=== PATIENT | male | born 1970 | race Caucasian/White ===

== ENCOUNTER 2018-06-30 09:26 | Emergency (ER) | payer MEDICAID ==
[~2018-06-30] VITALS: Ht 175.3 cm; Wt 110.2 kg
[2018-06-30 09:26] VITALS: BP_SYST 112
--- NOTE | 2018-06-30 11:21 | NUR ---
Patient is awake, alert, and oriented x4. Patient is complaining of aching right sided abdominal pain 9/10 for 1 day. Patient denies previous medical history.
--- NOTE | 2018-06-30 11:58 | NUR ---
PT TAKEN TO RADIOLOGY VIA WHEELCHAIR IN STABLE CONDITION
--- NOTE | 2018-06-30 12:04 | NUR ---
PT RETURNED FROM RADIOLOGY VIA WHEELCHAR IN STABLE CONDITION
--- NOTE | 2018-06-30 12:15 | NUR ---
ER Dr. Hinkle at bedside examining patient.
[2018-06-30 12:16] LABS: CREATININE 0.87 mg/dL (0.55-1.30); POTASSIUM 4.2 mmol/L (3.5-5.1)
[2018-06-30 12:17] LABS: HEMATOCRIT 49.4 % (36-54); HEMOGLOBIN 16.4 g/dL (14.0-18.0); PROTHROMBIN TIME 9.9 SECS (9.5-12.5); RED BLOOD CELL COUNT(AUTO) 5.39 MIL/uL (4.2-6.2); WHITE BLOOD COUNT (AUTO) 12.3 K/uL (4.8-10.8)
[2018-06-30 12:18] LABS: BASOPHILS # (AUTO) 0.1 K/uL (0.0-0.2); BASOPHILS % (AUTO) 0.7 % (0.0-2.0); EOSINOPHILS # (AUTO) 0.1 K/uL (0.0-0.4); EOSINOPHILS % (AUTO) 1.2 % (0.0-4.0); LYMPHOCYTES # (AUTO) 1.7 K/uL (1.0-5.5); LYMPHOCYTES % (AUTO) 13.7 % (20.5-51.5); MEAN CORPUSCULAR HEMOGLOBIN 30 pg (27-31); MEAN CORPUSCULAR HGB CONC 33 % (32-36); MEAN CORPUSCULAR VOLUME 92 fL (79.0-98.0); MONOCYTES % (AUTO) 8.1 % (1.7-9.3); NEUTROPHILS # (AUTO) 9.4 K/uL (1.8-7.7); NEUTROPHILS % (AUTO) 76.3 % (40.0-70.0); PLATELET COUNT (AUTO) 299 K/uL (130-430)
[2018-06-30 12:20] LABS: ALBUMIN 3.5 g/dL (3.4-4.8); TOTAL BILIRUBIN 1.1 mg/dL (0.0-1.0)
[2018-06-30 12:55] LABS: BILIRUBIN,URINE NEGATIVE (NEGATIVE); BLOOD, URINE NEGATIVE (NEGATIVE); CLARITY/URINE CLEAR (CLEAR); COLOR,URINE YELLOW (YELLOW); GLUCOSE,URINE NEGATIVE (NEGATIVE); KETONES,URINE NEGATIVE (NEGATIVE); LEUKOCYTE ESTERASE ,URINE NEGATIVE (NEGATIVE); NITRITE, URINE NEGATIVE (NEGATIVE); PROTEIN URINE TRACE (NEGATIVE)
[2018-06-30] MEDS ORDERED: VITD400 PO (13:08)
--- NOTE | 2018-06-30 13:58 | NUR ---
Report given to Robbie for continuation of care.
[2018-06-30] MEDS ORDERED: PIPERACILLIN/TAZO 3.375 GM in NS 50 ML IV ONE (14:30)
[2018-06-30] MEDS ORDERED: NACL 0.9% 1,000 ML IV ONE (14:30)
--- NOTE | 2018-06-30 14:30 | NUR ---
Pt signed consent to transfer
[2018-06-30] MEDS ORDERED: PIPERACILLIN/TAZOBACTAM 3.375 GM/VIAL (ZOSYN) IV ONE (14:57)
--- NOTE | 2018-06-30 15:26 | NUR ---
TRANSFER INFO SPOKE TO [facility] RM: [id number] BED 2 REPORT #: [phone]
--- NOTE | 2018-06-30 16:03 | NUR ---
Note undone in EDM - 06/30/18 at 1604 by [email or web address] Patient to be transferred to [facility]. Is being transferred due to higher level of care. Receiving facility has accepting physician and available space. ER physician Dr. Hinkle has signed transfer form. Patient or responsible constitution party has agreed to transfer and signed form. Patient belongings inventoried and will be sent with patient. Copy of nursing notes, lab reports, EKG, Physicians Orders and X-rays to be sent with patient. Report called to at receiving facility. Receiving physician is Dr. Parra. Ambulance service has been called for transfer. ETA is now.
--- NOTE | 2018-06-30 16:05 | NUR ---
Patient to be transferred to [facility]. Is being transferred due to higher level of care. Receiving facility has accepting physician and available space. ER physician Dr. Hinkle has signed transfer form. Patient or responsible republican has agreed to transfer and signed form. Patient belongings inventoried and will be sent with patient. Copy of nursing notes, lab reports, EKG, Physicians Orders and X-rays to be sent with patient. Report called to Kim FERNANDEZ at receiving facility. Receiving physician is Dr. Parra. Ambulance service has been called for transfer. ETA is now.
[2018-06-30 16:07] VITALS: BP_SYST 119
== END 2018-06-30 16:05 | disposition short-term general hospital (02) ==
LOC: SED 09:26
DX: K57.92 Diverticulitis of intestine, part unspecified, without perforation or abscess without bleeding (principal); Z79.899 Other long term (current) drug therapy
CPT/HCPCS: 36415; 71045; 74176; 80053; 81003; 83605; 83690; 85025; 85610; 87040; 93005; 96365; 99285; J2543; J7030

== ENCOUNTER 2018-09-21 18:04 | Emergency (ER) | payer MEDICAID ==
[~2018-09-21] VITALS: Ht 177.8 cm; Wt 109.8 kg
[~2018-09-21 18:04] MED LIST: VITD400 PO
[2018-09-21 18:13] VITALS: BP_SYST 119
--- NOTE | 2018-09-21 18:22 | NUR ---
Patient to ER bed 1 to gown for evaluation. Side rails up. Report given to Abhishek FERANNDEZ.
--- NOTE | 2018-09-21 18:27 | NUR ---
Patient is awake, alert, and oriented x4. Patient is complaining of fever, lethargy, throbbing right sided flank 4/10. Patient reports last bowel movement was yesterday and was soft. He has a history of diverticulitis.
--- NOTE | 2018-09-21 18:28 | NUR ---
JAMES Salmon at bedside examining patient.
[2018-09-21] MEDS ORDERED: NACL 0.9% 1,000 ML IV ONE ×2 (18:45→19:30)
[2018-09-21 18:59] LABS: BASOPHILS # (AUTO) 0.1 K/uL (0.0-0.2); LYMPHOCYTES # (AUTO) 1.7 K/uL (1.0-5.5); MONOCYTES % (AUTO) 6.6 % (1.7-9.3)
--- NOTE | 2018-09-21 19:04 | NUR ---
Report given to REBECCA García for continuation of care.
[2018-09-21 19:05] LABS: BASOPHILS % (AUTO) 0.7 % (0.0-2.0); EOSINOPHILS # (AUTO) 0.4 K/uL (0.0-0.4); EOSINOPHILS % (AUTO) 2.6 % (0.0-4.0); HEMATOCRIT 49.5 % (36-54); LYMPHOCYTES % (AUTO) 10.9 % (20.5-51.5); MEAN CORPUSCULAR HEMOGLOBIN 31 pg (27-31); MEAN CORPUSCULAR HGB CONC 34 % (32-36); MEAN CORPUSCULAR VOLUME 90 fL (79.0-98.0); NEUTROPHILS # (AUTO) 12.4 K/uL (1.8-7.7); NEUTROPHILS % (AUTO) 79.2 % (40.0-70.0); PLATELET COUNT (AUTO) 286 K/uL (130-430); RED BLOOD CELL COUNT(AUTO) 5.48 MIL/uL (4.2-6.2); RED CELL DISTRIBUTION WIDTH 13.6 % (9.0-15.0); WHITE BLOOD COUNT (AUTO) 15.6 K/uL (4.8-10.8)
--- NOTE | 2018-09-21 19:05 | NUR ---
1904 - Assumed care of pt. Pt sitting in bed, HR elevated, otherwise VSS. Pt states he still feels just as tired as when he came in, pt states pain is 5/10 at this time. Pt is A&OX4, informed that a urine sample is still needed. Will cont to monitor.
[2018-09-21 19:15] LABS: CALCIUM 9.6 mg/dL (8.4-11.0); CREATININE 1.19 mg/dL (0.55-1.30); POTASSIUM 3.8 mmol/L (3.5-5.1)
[2018-09-21 19:22] LABS: ALBUMIN 3.6 g/dL (3.4-4.8); TOTAL BILIRUBIN 0.9 mg/dL (0.0-1.0)
[2018-09-21 19:57] LABS: BILIRUBIN,URINE NEGATIVE (NEGATIVE); BLOOD, URINE NEGATIVE (NEGATIVE); CLARITY/URINE CLEAR (CLEAR); COLOR,URINE YELLOW (YELLOW); GLUCOSE,URINE NEGATIVE (NEGATIVE); KETONES,URINE NEGATIVE (NEGATIVE); LEUKOCYTE ESTERASE ,URINE NEGATIVE (NEGATIVE); NITRITE, URINE NEGATIVE (NEGATIVE); PROTEIN URINE NEGATIVE (NEGATIVE); UROBILINOGEN,URINE 0.2 (0.2-1.0)
--- NOTE | 2018-09-21 20:20 | NUR ---
2020 - Patient transported to radiology via wheelchair, accompanied by Addy oreilly.
[2018-09-21] MEDS ORDERED: IOHEXOL 100 ML IV ONE (20:31)
[2018-09-21 21:53] VITALS: BP_SYST 119
--- NOTE | 2018-09-21 21:53 | NUR ---
2153 - Patient given written and verbal discharge instructions and verbalizes understanding. ER MD discussed with patient the results and treatment provided. Patient in stable condition. ID arm band removed. IV catheter removed intact and dressing applied, no active bleeding. Patient educated on pain management and to follow up with PMD. Opportunity for questions provided and answered. Medication side effect fact sheet provided.
== END 2018-09-21 21:53 | disposition home or self-care (01) ==
LOC: SED 18:04
DX: R00.0 Tachycardia, unspecified (principal); R50.9 Fever, unspecified
CPT/HCPCS: 36415; 74177; 80053; 81003; 83605; 83690; 85025; 86710; 87040; 99284; J7030; Q9967